=== PATIENT | female | born 1940 ===

== ENCOUNTER 2024-11-02 02:54 | Outpatient (CLI) | payer MEDICARE, BC, SELFPAY ==
[2024-11-02 11:39] LABS: Abs Immature Grans 0.01 10^3/uL (0.0-0.06); HCT 41.8 % (36.0-46.0); HGB 13.9 g/dL (11.2-15.7); Immature Grans % 0.2 %; MCH 29.9 pg (27.0-33.0); MCHC 33.3 % (32.0-36.0); MCV 90 fL (80-95); MPV 9.2 fL (8.0-11.0); Platelet Count 272 10^3/uL (130-400); RBC 4.65 10^6/uL (3.93-5.22); RDW 11.1 % (11.7-14.6); RDW-SD 36.0 fL; WBC 5.19 10^3/uL (4.4-10.8)
[2024-11-02 12:02] LABS: ALT 28 U/L (14-59); AST 19 U/L (15-37); Albumin 4.0 g/dL (3.4-5.0); Alkaline Phosphatase 122 U/L (46-116); Anion Gap 10.0 mmol/L (3-11); BUN 19 mg/dL (7-18); Bilirubin, Total 0.7 mg/dL (0.2-1.0); CO2 27.0 mmol/L (21.0-32.0); Calcium 9.1 mg/dL (8.5-10.1); Chloride 106 mmol/L (98-107); Estimated GFR 87.36 (mL/min/1.73m2); Glucose 111 mg/dL (74-106); LDH 172 U/L (81-234); Potassium 4.1 mmol/L (3.5-5.1); Sodium 143 mmol/L (136-145); Total Protein 7.6 g/dL (6.4-8.2)
== END 2024-11-02 02:55 | disposition home or self-care (01) ==
PROVIDERS: Visit Provider Nurse Practitioner Adult Health
DX: C91.10 Chronic lymphocytic leukemia of B-cell type not having achieved remission (principal)
CPT/HCPCS: 36415; 80053; 82784; 83615; 85025